=== PATIENT | male | born 1985 | race African-American/Black ===

== ENCOUNTER 2020-09-09 05:53 | Emergency (ER) | payer OTHER ==
[~2020-09-09] VITALS: Ht 182.9 cm; Wt 72.6 kg
[2020-09-09 06:45] LABS: Basophils # (auto) 0.2 10 ^3/uL (0-0.2); Basophils % (auto) 1.1 % (0.0-2.0); Eosinophils # (auto) 0.1 10 ^3/uL (0-0.8); Eosinophils % (auto) 0.4 % (0.0-7.0); Hematocrit 44.3 % (41.0-53.0); Hemoglobin 15.5 g/dL (13.5-17.5); Lymphocytes # (auto) 1.8 10 ^3/uL (0.4-5.4); Lymphocytes % (auto) 12.3 % (10.0-50.0); Mean Corpuscular Hemoglobin 32.6 pg (28.0-32.0); Mean Corpuscular Volume 93.4 fL (80.0-100.0); Monocytes # (auto) 1.2 10 ^3/uL (0-1.3); Monocytes % (auto) 7.9 % (0.0-12.0); Neutrophils # (auto) 11.6 10 ^3/uL (1.6-8.6); Neutrophils % (auto) 78.3 % (37.0-80.0); Nucleated Red Blood Cells % 0.1 %; Red Blood Cells 4.74 10^6/uL (4.5-5.90); Red Cell Distribution Width 13.3 % (11.8-14.3); White Blood Cell 14.8 10^3/uL (4.4-10.8)
[2020-09-09 07:03] LABS: Alanine Aminotransferase 37 U/L (16-61); Albumin 4.6 g/dL (3.4-5.0); Anion Gap 12 (5-15); Aspartate Aminotransferase 47 U/L (15-37); BUN/Creatinine Ratio 15.4; Blood Urea Nitrogen 16 mg/dL (7-18); Calcium 9.8 mg/dL (8.5-10.1); Carbon Dioxide 24 mmol/L (21-32); Chloride 100 mmol/L (98-107); GFR African American 105 mL/min; GFR Non-African American 86 mL/min; Glucose 80 mg/dL (74-106); Potassium 4.1 mmol/L (3.5-5.1); Sodium 136 mmol/L (136-145)
[2020-09-09 07:05] LABS: INR 0.98 (0.9-1.15); Partial Thromboplastin Time 25.5 sec (23.0-31.2)
[2020-09-09 07:07] LABS: Alkaline Phosphatase 30 U/L (45-117); Bilirubin, Total 1.6 mg/dL (0.2-1.0); Total Protein 8.2 g/dL (6.4-8.2)
[2020-09-09] MEDS ORDERED: ALBUTEROL SULF 2.5 MG/0.5ML(0.5%) NEB SOLN NEB ONE (08:00)
[2020-09-09] MEDS ORDERED: IPRATROPIUM BROM 0.5 MG/2.5ML INH SOL NEB ONE (08:00)
[2020-09-09] MEDS ORDERED: HYDROcodone-ACET 5/325MG TAB PO ONE (08:00)
[2020-09-09 08:09] LABS: Urine Bacteria NONE SEEN /hpf (None Seen); Urine Blood Negative /uL (Negative); Urine Specific Gravity 1.015 (1.001-1.035); Urine Sperm PRESENT /hpf (None Seen); Urine WBC 1 /hpf (0 - 3)
[2020-09-09 09:47] VITALS: BP 134/84
== END 2020-09-09 10:04 | disposition home or self-care (01) ==
LOC: ER 05:53
DX: R06.02 Shortness of breath (principal); J06.9 Acute upper respiratory infection, unspecified; F17.210 Nicotine dependence, cigarettes, uncomplicated
CPT/HCPCS: 36415; 71045; 80053; 81001; 83880; 84484; 85025; 85610; 85730; 93005; 94640; 99285; J7644